=== PATIENT | male | born 1985 ===

== ENCOUNTER 2017-08-26 22:35 | Emergency (ER) | payer OTHER ==
[~2017-08-26] VITALS: Ht 175.3 cm; Wt 107.5 kg
[2017-08-26 22:48] VITALS: Ht 175.3 cm; Wt 107.5 kg
[2017-08-27 00:02] VITALS: BP 150/104
== END 2017-08-27 00:02 | disposition home or self-care (01) ==
LOC: ED 22:35
DX: S93.501A Unspecified sprain of right great toe, initial encounter (principal); S50.02XA Contusion of left elbow, initial encounter; S80.12XA Contusion of left lower leg, initial encounter; S09.90XA Unspecified injury of head, initial encounter; W01.198A Fall on same level from slipping, tripping and stumbling with subsequent striking against other object, initial encounter; Y93.01 Activity, walking, marching and hiking; Y92.59 Other trade areas as the place of occurrence of the external cause; Y99.8 Other external cause status